=== PATIENT | female | born 1955 | race Caucasian/White ===

== ENCOUNTER 2020-03-26 16:19 | Inpatient (IN) | payer OTHER ==
--- NOTE | 2020-03-26 17:15 | PDOC ---
History of Present Illness - General Chief Complaint: Pain Stated Complaint: PAIN Time Seen by Provider: 03/26/20 17:10 - History of Present Illness Initial Comments: 65 YOF h/o hypothyroidism by gastritis presents for abdominal pain and melena of two days duration. Per patient pain is located in the epigastrum radiating outward laterally and to the back. She describes the pain as 10/10 in intensity, burning and stabbing in quality, she tried to take omeprazole but didnt experience any relief. She also endorses a bout of vomiting 2 days prior, as well as multiple bouts of tarry stool and some burning chest pain. Denies SOB, fever, chills, nausea, or diarrhea, changes in urinary habit. Past History - Medical History Allergies/Adverse Reactions: Allergies Allergy/AdvReac Type Severity Reaction Status Date / Time No Known Allergies Allergy Verified 03/26/20 16:33 Home Medications: Ambulatory Orders Levothyroxine [Synthroid -] 50 mcg PO DAILY 03/26/20 COPD: No GI Disorders: Yes (GASTRITIS) HTN: Yes Thyroid Disease: Yes (HYPO) - Reproductive History Is Patient Now?: No - Psycho-Social/Smoking History Smoking Status: No Smoking History: Never smoked Have you smoked in the past 12 months: No Number of Cigarettes Smoked Daily: 0 Information on smoking cessation initiated: No - Substance Abuse Hx (Audit-C & DAST Scrn) How often the patient has a drink containing alcohol: Never Score: In Men: 4 or > Positive; In Women: 3 or > Positive: 0 Screen Result (Pos requires Nsg. Audit-10AR): Negative In the last yr the pt used illegal drug/Rx for NonMed reason: No Score: Yes response is considered Positive: 0 Screen Result (Positive result requires Nsg. DAST-10): Negative Review of Systems - Review of Systems Constitutional: Yes: See HPI HEENTM: Yes: See HPI Respiratory: Yes: See HPI Cardiac (ROS): Yes: See HPI ABD/GI: Yes: See HPI : Yes: See HPI Musculoskeletal: Yes: See HPI Integumentary: Yes: See HPI Neurological: Yes: See HPI Endocrine: Yes: See HPI Hematologic/Lymphatic: Yes: See HPI *Physical Exam - Vital Signs Last Vital Signs Temp Pulse Resp BP Pulse Ox 98.6 F 76 18 132/83 97 03/26/20 16:29 03/26/20 16:29 03/26/20 16:29 03/26/20 16:29 03/26/20 16:29 - Physical Exam General Appearance: Yes: Nourished, Moderate Distress HEENT: positive: EOMI, JAKY, Normal ENT Inspection, Normal Voice Neck: positive: Trachea midline, Normal Thyroid Respiratory/Chest: positive: Chest Tender, Lungs Clear, Normal Breath Sounds Cardiovascular: positive: Regular Rhythm, Regular Rate, S1, S2 Gastrointestinal/Abdominal: positive: Tender, Soft, Tenderness Rectal Exam: positive: normal exam Musculoskeletal: positive: Normal Inspection Extremity: positive: Normal Capillary Refill, Normal Inspection Integumentary: positive: Normal Color, Dry, Warm ED Treatment Course - LABORATORY CBC & Chemistry Diagram: 03/27/20 05:15 03/27/20 05:15 Medical Decision Making - Medical Decision Making 65 YOF h/o hypothyroidism by gastritis presents for abdominal pain and melena of two days duration. Per patient pain is located in the epigastrum radiating outward laterally and to the back. She describes the pain as 10/10 in intensity, burning and stabbing in quality, she tried to take omeprazole but didnt experience any relief. She also endorses a bout of vomiting 2 days prior, as well as multiple bouts of tarry stool and some burning chest pain. Denies SOB, fever, chills, nausea, or diarrhea, changes in urinary habit. Vitals wnl on arrival. Physical exam reveals tenderness to palpation of epigastrum and upper two quadrants of abdomen. Rectal exam unremarkable. ddx: peptic ulcer disease, AVM, bowel perforation, mesenteric ischemia, bowel obstruction plan: CBC, CMP, lactate, lipase, type and screen, coags, CT abdomen reassess: labs at time of sign out wnl, patient signed out to night team. 03/27/20 07:54 Discharge - Discharge Information Problems reviewed: Yes Clinical Impression/Diagnosis: Acute cholecystitis due to biliary calculus Condition: Guarded - Follow up/Referral - Patient Discharge Instructions - Post Discharge Activity
[2020-03-26] MEDS ORDERED: FAMOTIDINE 20 MG/50 ML IVPB 20 MG/50 ML MG IVPB ONE ×2 (17:46→18:00)
[2020-03-26] MEDS ORDERED: PANTOPRAZOLE SODIUM 40 MG VIAL IVPUSH ONE (17:58)
[2020-03-26] MEDS ORDERED: MAG HYDROX/AL HYDROX/SIMETH 30 ML UNIT-DOSE CUP ONE (18:00)
[2020-03-26] MEDS ORDERED: LIDOCAINE VISCOUS 2% ORAL/TOP 20 ML UNIT-DOSE CUP ONE (18:00)
[2020-03-26] MEDS: LIDOCAINE VISCOUS 2% ORAL/TOP 20 ML UNIT-DOSE CUP MM ONE ×2 (18:05→18:09)
[2020-03-26] MEDS: MAG HYDROX/AL HYDROX/SIMETH -MYLANTA- ORAL SUSPENSION PO ONE ×2 (18:05→18:10)
[2020-03-26] MEDS ORDERED: PANTOPRAZOLE SODIUM 40 MG VIAL ONE (18:07)
[2020-03-26] MEDS ORDERED: morphine CARPU-JECT 2 MG/1 ML DISP.SYRIN IVPUSH ONE (18:09)
[2020-03-26] MEDS ORDERED: LACTATED RINGERS SOLUTION 1000 ML INFUS.BAG IV ONE (18:09)
[2020-03-26] MEDS ORDERED: MORPHINE SULFATE 2 MG/ML VIAL ONE (18:13)
--- NOTE | 2020-03-26 18:15 | PDOC ---
Documentation entered by Eda Rice SCRIBE, acting as scribe for Nuvia Bloom DO. Nuvia Bloom DO: This documentation has been prepared by the Krystal carrington Brenda, SCRIBE, under my direction and personally reviewed by me in its entirety. I confirm that the documentation accurately reflects all work, treatment, procedures, and medical decision making performed by me. Attending Attestation - Resident Resident Name: Napoleon Khan - ED Attending Attestation I have performed the following: I have examined & evaluated the patient, The case was reviewed & discussed with the resident, I agree w/resident's findings & plan, Exceptions are as noted - HPI HPI: 03/26/20 17:51 The patient is a 65 year old female with a significant PMH of hypothyroidism who presents to the emergency department fro evaluation of 2 days of melena and abdominal pain in the epigastric region radiating outward to her sides and to her back. Also endorses vomitting 2 days ago along with burning chest pain. The patient denies shortness of breath, headache and dizziness. Denies fever, chills and constipation. Denies dysuria, frequency, urgency and hematuria. Allergies: NKA Social history: No reported hx of tobacco use, alcohol use or illicit drug use. PCP: Lexa - Physicial Exam PE: 03/26/20 17:18 GENERAL: Awake, alert, and fully oriented, in no acute distress HEAD: No signs of trauma NECK: Normal ROM, supple, no lymphadenopathy, JVD, or masses LUNGS: Breath sounds equal, clear to auscultation bilaterally. No wheezes, and no crackles HEART: Regular rate and rhythm, normal S1 and S2, no murmurs, rubs or gallops ABDOMEN: (+) Tenderness to palpation diffusely (+) Tender to palpation on the upper abdomen,right upper/left upper quadrant to the mid epigastric region to the umbilicous. Soft. Normoactive bowel sounds. No guarding, no rebound. No masses EXTREMITIES: Normal range of motion, no edema. No clubbing or cyanosis. No cords, erythema, or tenderness NEUROLOGICAL: Cranial nerves II through XII grossly intact. Normal speech, normal gait SKIN: Warm, Dry, normal turgor, no rashes or lesions noted. - Medical Decision Making 03/26/20 18:14 a/p: 65yo female with abd pain x 3 days -first 2 days were assoc with n/v - nbnb -all 3 days with 3 episodes of diarrhea a day, now with black tarry stool -pt with upper abd pain -will send labs, lactate, ct abd/pelvis -protonix iv -ivf -will need admission 03/26/20 18:57 hgb 15 03/26/20 19:01 no elevated wbc 03/26/20 19:15 bun/cr normal trop pending 03/26/20 19:22 trop neg pt to ct still with pain, will repeat morphine dosing 03/26/20 22:47 pt with acute maury call placed to Dr. Verma microblog sent to [facility] MRCP ordered 03/26/20 23:27 resident discussed the case with Dr. Verma who will see the patient in consult 03/26/20 23:42 resident discussed the case with steven who accepts pt to service pts pain controlled at this time Heart Score/ECG Review - ECG Intrepretation Comment:: 03/26/20 19:04 sinus at 65, nl axis, nl interval, no acute st/t wave findings Discharge - Discharge Information Problems reviewed: Yes Clinical Impression/Diagnosis: Acute cholecystitis due to biliary calculus Condition: Guarded - Admission Yes - Follow up/Referral Referrals: Genaro Lindquist MD [Primary Care Provider] - - Patient Discharge Instructions - Post Discharge Activity
[2020-03-26 18:43] LABS: BASO % 0.5 % (0-2.0); EOS % 0.8 % (0-4.5); LYMPH % 22.8 % (8-40); MCH 30.7 pg (25.7-33.7); MCHC 34.1 g/dl (32.0-36.0); MEAN PLT VOLUME 8.2 fl (7.5-11.1); MONO % 7.9 % (3.8-10.2); PLATELET COUNT 245 K/MM3 (134-434); RBC 4.89 M/mm3 (3.60-5.2); RDW 13.4 % (11.6-15.6); WHITE BLOOD COUNT 7.3 K/mm3 (4.0-10.0)
[2020-03-26 19:12] LABS: ALBUMIN 3.6 g/dl (3.4-5.0); BILIRUBIN,TOTAL 0.4 mg/dL (0.2-1); BLOOD UREA NITROGEN 12.6 mg/dL (7-18); CALCIUM 8.8 mg/dL (8.5-10.1); CREATININE 1.1 mg/dL (0.55-1.3); POTASSIUM 4.3 mmol/L (3.5-5.1); TOT PROT 7.6 g/dl (6.4-8.2)
[2020-03-26] MEDS ORDERED: morphine CARPU-JECT 4 MG/1 ML DISP.SYRIN IVPUSH ONE (19:21)
[2020-03-26] MEDS ORDERED: ONDANSETRON 4 MG/2 ML VIAL IVPUSH ONE (19:21)
[2020-03-26] MEDS ORDERED: morphine SULFATE 4 MG/ML VIAL ONE (19:22)
--- NOTE | 2020-03-26 19:38 | PDOC ---
*Physical Exam - Vital Signs Last Vital Signs Temp Pulse Resp BP Pulse Ox 98.6 F 74 18 179/82 H 99 03/26/20 16:29 03/26/20 19:09 03/26/20 19:09 03/26/20 19:09 03/26/20 19:09 - Physical Exam 03/26/20 19:[address] Erin KENDALL pain ED Treatment Course - LABORATORY CBC & Chemistry Diagram: 03/26/20 17:45 03/26/20 17:45 - ADDITIONAL ORDERS Additional order review: Laboratory Results 03/26/20 03/26/20 03/26/20 17:45 17:45 17:45 Sodium Potassium Chloride Carbon Dioxide Anion Gap BUN Creatinine Est GFR (CKD-EPI)AfAm Est GFR (CKD-EPI)NonAf Random Glucose Lactic Acid 1.0 Calcium Total Bilirubin AST ALT Alkaline Phosphatase Creatine Kinase 84 Troponin I < 0.02 Total Protein Albumin Lipase Blood Type A POSITIVE Antibody Screen Negative 03/26/20 17:45 Sodium 137 Potassium 4.3 Chloride 102 Carbon Dioxide 30 Anion Gap 6 L BUN 12.6 Creatinine 1.1 Est GFR (CKD-EPI)AfAm 60.59 Est GFR (CKD-EPI)NonAf 52.28 Random Glucose 98 Lactic Acid Calcium 8.8 Total Bilirubin 0.4 AST 16 ALT 23 Alkaline Phosphatase 112 Creatine Kinase Troponin I Total Protein 7.6 Albumin 3.6 Lipase 138 Blood Type Antibody Screen 03/26/20 17:45 RBC 4.89 MCV 90.0 MCHC 34.1 RDW 13.4 MPV 8.2 Neutrophils % 68.0 Lymphocytes % 22.8 D Monocytes % 7.9 Eosinophils % 0.8 Basophils % 0.5 - Medications Given in the ED: ED Medications Discontinued Medications Generic Name Dose Route Start Last Admin Trade Name Freq PRN Reason Stop Dose Admin Al Hydroxide/Mg Hydroxide 30 ml 03/26/20 17:46 03/26/20 18:10 Mylanta Suspension - PO 03/26/20 17:47 Not Given ONCE ONE Famotidine/Sodium Chloride 20 mg in 50 mls @ 100 mls/hr 03/26/20 17:46 03/26/20 18:10 Pepcid 20 Mg Premixed Ivpb - IVPB 03/26/20 18:15 Not Given ONCE ONE Lactated Ringer's 1,000 ml 03/26/20 18:09 03/26/20 18:09 Lactated Ringers Solution IV 03/26/20 18:10 1,000 ml ONCE ONE Administration Lidocaine HCl 20 ml 03/26/20 17:46 03/26/20 18:09 Xylocaine 2% Viscous Oral - MM 03/26/20 17:47 Not Given ONCE ONE Morphine Sulfate 2 mg 03/26/20 18:09 03/26/20 18:14 Morphine Injection - IVPUSH 03/26/20 18:10 2 mg ONCE ONE Administration Morphine Sulfate 4 mg 03/26/20 19:21 03/26/20 19:26 Morphine Injection - IVPUSH 03/26/20 19:22 4 mg ONCE ONE Administration Ondansetron HCl 4 mg 03/26/20 19:21 03/26/20 19:26 Zofran Injection IVPUSH 03/26/20 19:22 4 mg ONCE ONE Administration Pantoprazole Sodium 40 mg 03/26/20 17:58 03/26/20 18:05 Protonix Iv IVPUSH 03/26/20 17:59 40 mg ONCE ONE Administration Discharge - Discharge Information Problems reviewed: Yes Clinical Impression/Diagnosis: Acute cholecystitis due to biliary calculus Condition: Guarded - Admission Yes - Follow up/Referral Referrals: Genaro Lindquist MD [Primary Care Provider] - - Patient Discharge Instructions - Post Discharge Activity
[2020-03-26] MEDS ORDERED: PIPERACILLIN/TAZOB 3.375 GM 3.375 GM in DEXTROSE 5%-WATER - 50 ML IVPB ONE (21:40)
[2020-03-27] MEDS ORDERED: HYDROmorphone HCl 2 MG/ML VIAL IVPUSH PRN (00:01)
[2020-03-27] MEDS ORDERED: LACTATED RINGERS SOLUTION 1,000 ML IV SCH (00:15)
--- NOTE | 2020-03-27 00:25 | HP ---
CHIEF COMPLAINT: abdominal pain and vomiting PCP: Hao HISTORY OF PRESENT ILLNESS: 65 YO lady with Mhx of hypothyroidism, and gastritis who presented to ED complaining from 6 days hx of RUQ pain associated with nausea and bilious vomiting, her symptoms started suddenly after eating fatty meal, the patient initially thought it was gastritis episode, and tried nexium without relieve, her symptoms continued to wax and wane over the past day. Pt reported that she noticed loose BM with 3 episodes of dark stool, no change in appetite and reported that food relieved the pain slightly, but she was not able to eat much due to the vomiting. Her pain worsen today and pt came to ED. ER course was notable for: (1) CT abdomen showed calculous cholecystitis, common bile duct dilated to 0.7cm, 4x3 cm diverticulum in 2nd part of duodenum, hepatic steatosis, lt sided diaphragmatic hernia, hiatal hernia (2)US abdomen (3)surgical consult obtained Recent Travel: no PAST MEDICAL HISTORY: hypothyroidism, and gastritis PAST SURGICAL HISTORY: hysterectomy, skin fibroma removal Social History: Smoking: denies Alcohol: denies Drugs: denies Allergies No Known Allergies Allergy (Verified 03/26/20 16:33) HOME MEDICATIONS: Home Medications Medication Instructions Recorded Levothyroxine [Synthroid -] 50 mcg PO DAILY 03/26/20 REVIEW OF SYSTEMS CONSTITUTIONAL: fever, chills HEENT: system reviewed, appears within normal limits CARDIOVASCULAR: system reviewed, appears within normal limits RESPIRATORY: system reviewed, appears within normal limits GASTROINTESTINAL: see HPI GENITOURINARY: system reviewed, appears within normal limits MUSCULOSKELETAL: system reviewed, appears within normal limits SKIN: system reviewed, appears within normal limits HEMATOLOGIC/IMMUNOLOGIC: system reviewed, appears within normal limits ENDOCRINE: system reviewed, appears within normal limits NEUROLOGIC: system reviewed, appears within normal limits PSYCHIATRIC: system reviewed, appears within normal limits PHYSICAL EXAMINATION Vital Signs - 24 hr 03/26/20 03/26/20 03/26/20 16:29 19:09 22:50 Temperature 98.6 F Pulse Rate 76 Pulse Rate [ 74 78 Right Radial] Respiratory 18 18 18 Rate Blood Pressure 132/83 Blood Pressure 179/82 H 133/54 L [Left Arm] O2 Sat by Pulse 97 99 98 Oximetry (%) GENERAL: Awake, alert, and fully oriented, in no acute distress. HEAD: Normal with no signs of trauma. EYES: Pupils equal, round and reactive to light, extraocular movements intact, sclera anicteric, conjunctiva clear. No lid lag. EARS, NOSE, THROAT: Ears normal, nares patent, oropharynx clear without exudates. Moist mucous membranes. NECK: Normal range of motion, supple without lymphadenopathy, JVD, or masses. LUNGS: Breath sounds equal, clear to auscultation bilaterally. No wheezes, and no crackles. No accessory muscle use. HEART: Regular rate and rhythm, normal S1 and S2 without murmur, rub or gallop. ABDOMEN: Soft, RUQ tenderness, Mast sign +, not distended, normoactive bowel sounds. No hepatomegaly or splenomegaly. MUSCULOSKELETAL: Normal range of motion at all joints. No bony deformities or tenderness. No CVA tenderness. UPPER EXTREMITIES: 2+ pulses, warm, well-perfused. No cyanosis. No clubbing. No peripheral edema. LOWER EXTREMITIES: 2+ pulses, warm, well-perfused. No calf tenderness. No peripheral edema. NEUROLOGICAL: Cranial nerves II-XII intact. Normal speech. Normal gait. PSYCHIATRIC: Cooperative. Good eye contact. Appropriate mood and affect. SKIN: Warm, dry, normal turgor, no rashes or lesions noted, normal capillary refill. Laboratory Results - last 24 hr 03/26/20 03/26/20 03/26/20 17:45 17:45 17:45 WBC 7.3 RBC 4.89 Hgb 15.0 Hct 44.0 MCV 90.0 MCH 30.7 MCHC 34.1 RDW 13.4 Plt Count 245 MPV 8.2 Absolute Neuts (auto) 5.0 Neutrophils % 68.0 Lymphocytes % 22.8 D Monocytes % 7.9 Eosinophils % 0.8 Basophils % 0.5 Nucleated RBC % 0 Sodium 137 Potassium 4.3 Chloride 102 Carbon Dioxide 30 Anion Gap 6 L BUN 12.6 Creatinine 1.1 Est GFR (CKD-EPI)AfAm 60.59 Est GFR (CKD-EPI)NonAf 52.28 Random Glucose 98 Lactic Acid 1.0 Calcium 8.8 Total Bilirubin 0.4 AST 16 ALT 23 Alkaline Phosphatase 112 Creatine Kinase Troponin I Total Protein 7.6 Albumin 3.6 Lipase 138 Blood Type Antibody Screen 03/26/20 03/26/20 17:45 17:45 WBC RBC Hgb Hct MCV MCH MCHC RDW Plt Count MPV Absolute Neuts (auto) Neutrophils % Lymphocytes % Monocytes % Eosinophils % Basophils % Nucleated RBC % Sodium Potassium Chloride Carbon Dioxide Anion Gap BUN Creatinine Est GFR (CKD-EPI)AfAm Est GFR (CKD-EPI)NonAf Random Glucose Lactic Acid Calcium Total Bilirubin AST ALT Alkaline Phosphatase Creatine Kinase 84 Troponin I < 0.02 Total Protein Albumin Lipase Blood Type A POSITIVE Antibody Screen Negative Home Medications Medication Instructions Recorded Levothyroxine [Synthroid -] 50 mcg PO DAILY 03/26/20 ASSESSMENT/PLAN: 65 YO lady with Mhx of hypothyroidism, NAFLD and gastritis who p resented to ED complaining from 6 days hx of RUQ pain associated with nausea and bilious vomiting # Acute calculous cholecystitis reporting subjective fever, chills no fever, no leukocytosis CT abdomen showed calculous cholecystitis, common bile duct dilated to 0.7cm, 4x3 cm diverticulum in 2nd part of duodenum, hepatic steatosis, lt sided diaphragmatic hernia, hiatal hernia NPO, IV hydration, pain medications as indicated zosyn RCRI=0 (low risk patient), ASA2 obtain EKG May need MRCP later Surgical consult Hypothyroidism Gastritis NAFLD DVT prophylaxis with SCD Family Medical History Family History: Unremarkable Visit type - Medication Review Med list reviewed for High Risk Meds patients 65 and older: Yes (yes) - Emergency Visit Emergency Visit: Yes Care time: The patient presented to the Emergency Department on the above date and was hospitalized for further evaluation of their emergent condition. - New Patient This patient is new to me today: Yes Date on this admission: 03/27/20 - Critical Care Critical Care patient: No
[2020-03-27 01:43] LABS: PH,URINE > 9.0 (5.0-8.0); URINE APPEARANCE CLEAR; URINE BILIRUBIN NEGATIVE (NEGATIVE); URINE COLOR YELLOW; URINE GLUCOSE (UA) NEGATIVE (NEGATIVE); URINE KETONE NEGATIVE (NEGATIVE)
[2020-03-27 01:44] LABS: URINE LEUK ESTERASE NEGATIVE (NEGATIVE); URINE NITRITE NEGATIVE (NEGATIVE); URINE PROTEIN NEGATIVE (NEGATIVE); URINE UROBILINOGEN 0.2 mg/dL (0.2-1.0)
[2020-03-27] MEDS ORDERED: PIPERACILLIN/TAZOB 3.375 GM 3.375 GM in DEXTROSE 5%-WATER - 50 ML IVPB SCH ×2 (03:00→21:00)
[2020-03-27] MEDS ORDERED: PIPERACILLIN/TAZOB 3.375 GM 3.375 GM/50 ML BAG IVPB ONE (03:02)
[2020-03-27 06:05] LABS: BASO % 0.5 % (0-2.0); EOS % 0.8 % (0-4.5); HEMATOCRIT 42.5 % (32.4-45.2); HEMOGLOBIN 14.3 GM/dL (10.7-15.3); LYMPH % 22.1 % (8-40); MCH 30.1 pg (25.7-33.7); MCHC 33.8 g/dl (32.0-36.0); MEAN CELL VOLUME 89.3 fl (80-96); MEAN PLT VOLUME 7.6 fl (7.5-11.1); MONO % 9.4 % (3.8-10.2); NEUT % 67.2 % (42.8-82.8); PLATELET COUNT 234 K/MM3 (134-434); RBC 4.76 M/mm3 (3.60-5.2); RDW 13.5 % (11.6-15.6); WHITE BLOOD COUNT 5.8 K/mm3 (4.0-10.0)
[2020-03-27 06:20] LABS: INR 1.08 (0.83-1.09); PROTHROMBIN TIME (PATIENT) 12.8 SEC (9.7-13.0)
[2020-03-27 06:36] LABS: ALBUMIN 3.6 g/dl (3.4-5.0); BILIRUBIN,TOTAL 0.9 mg/dL (0.2-1); BLOOD UREA NITROGEN 9.1 mg/dL (7-18); CALCIUM 8.6 mg/dL (8.5-10.1); CREATININE 1.1 mg/dL (0.55-1.3); MAGNESIUM 2.6 mg/dL (1.8-2.4); PHOSPHOROUS 4.8 mg/dL (2.5-4.9); POTASSIUM 4.2 mmol/L (3.5-5.1); TOT PROT 7.4 g/dl (6.4-8.2)
--- NOTE | 2020-03-27 09:19 | EKG ---
Test Reason : Blood Pressure : / mmHG Vent. Rate : 066 BPM Atrial Rate : 066 BPM P-R Int : 144 ms QRS Dur : 082 ms QT Int : 428 ms P-R-T Axes : 051 039 020 degrees QTc Int : 448 ms NORMAL SINUS RHYTHM NORMAL ECG WHEN COMPARED WITH ECG OF 18-APR-2013 13:15, NO SIGNIFICANT CHANGE WAS FOUND Confirmed by JOE CHANEY MD ([id number]) on 03/27/2020 9:18:53 AM Referred By: Confirmed By:JOE CHANEY MD
[2020-03-27] MEDS ORDERED: CEFTRIAXONE 1 GM in DEXTROSE 5%-WATER - 50 ML IVPB SCH (10:00)
[2020-03-27] MEDS ORDERED: CEFTRIAXONE 1 GM/50 ML BAG ONE (10:24)
--- NOTE | 2020-03-27 11:20 | PN ---
Teaching Attending Note Name of Resident: Segundo Lassiter ATTENDING PHYSICIAN STATEMENT I saw and evaluated the patient. I reviewed the resident's note and discussed the case with the resident. I agree with the resident's findings and plan as documented. SUBJECTIVE: Seen and examined at bedside. No acute distress, mild abdominal tenderness. LFTs noted to be increasing. Discussed with surgery: Given the large size of the stone (2.7 cm) they believe this represents extrinsic compression of the common bile duct and not current passage of a stone. Would prefer to defer additional imaging and take straight to the operating room. OBJECTIVE Last Vital Signs Temp Pulse Resp BP Pulse Ox 97.6 F 64 18 146/57 L 97 03/27/20 05:54 03/27/20 05:54 03/27/20 05:54 03/27/20 05:54 03/27/20 05:54 PE: Per resident note Labs/Imaging: reviewed ASSESSMENT/PLAN 65-year-old female with a history of hypothyroidism, NAFLD, gastritis who presents with acute cholecystitis #Acute calculus cholecystitis Surgery on board: 4 OR today Ceftriaxone, Flagyl prior to surgery N.p.o. Fluids #Hypothyroidism Continue home levothyroxine #Gastritis Pantoprazole
--- NOTE | 2020-03-27 13:30 | CONSULT ---
- Consultation REQUESTING PROVIDER: CONSULT REQUEST: We have been asked to surgically evaluate this patient for acute cholecystitis Hospitalist:Remberto Gonzalez MD HISTORY OF PRESENT ILLNESS: 65yo F was consulted to surgery for evaluation of acute cholecystitis. Pt states that she started developing significant RUQ pain associated with nausea and vomiting. Pt states she has history of epigastric pain after eating, but always associated it with gastritis. Pt denies fever, chills. PMHx: hypothyroidism PSHx: hysterectomy Home Medications Medication Instructions Recorded Levothyroxine [Synthroid -] 50 mcg PO DAILY 03/26/20 Allergies Allergy/AdvReac Type Severity Reaction Status Date / Time No Known Allergies Allergy Verified 03/26/20 16:33 REVIEW OF SYSTEMS: CONSTITUTIONAL: Absent: fever, chills, diaphoresis, generalized weakness, malaise, loss of appetite, weight change CARDIOVASCULAR: Absent: chest pain, syncope, palpitations, irregular heart rate, lightheadedness, peripheral edema RESPIRATORY: Absent: cough, shortness of breath, dyspnea with exertion, wheezing, stridor, hemoptysis GASTROINTESTINAL: Absent: abdominal pain, abdominal distension, nausea, vomiting, diarrhea, constipation, melena, hematochezia GENITOURINARY: Absent: dysuria, frequency, urgency, hesitancy, hematuria, flank pain, genital pain PHYSICAL EXAM: GENERAL: Awake, alert, and fully oriented, in no acute distress. HEAD: Normal with no signs of trauma. EYES: PERRL, sclera anicteric, conjunctiva clear. NECK: Normal ROM, supple without lymphadenopathy, JVD, or masses. LUNGS: breathing comfortably, No accessory muscle use. ABDOMEN: Soft, moderate RUQ tenderness, not distended, no guarding, no rebound, no masses. No organomegaly. MUSCULOSKELETAL: Normal ROM at all joints. No bony deformities or tenderness. No CVA tenderness. UPPER EXTREMITIES: warm, well-perfused. No cyanosis. Cap refill <2 seconds. No peripheral edema. LOWER EXTREMITIES: warm, well-perfused. No calf tenderness. No peripheral edema. NEUROLOGICAL: Normal speech, gait not observed. PSYCH: Cooperative. Good eye contact. Appropriate mood and affect. SKIN: Warm, dry, normal turgor, no rashes or lesions noted. Vital Signs Temperature 98 F 03/27/20 09:00 Pulse Rate 63 03/27/20 09:00 Respiratory Rate 18 03/27/20 09:00 Blood Pressure 153/78 03/27/20 09:00 O2 Sat by Pulse Oximetry (%) 95 03/27/20 09:00 Lab Results WBC 5.8 K/mm3 (4.0-10.0) 03/27/20 05:15 RBC 4.76 M/mm3 (3.60-5.2) 03/27/20 05:15 Hgb 14.3 GM/dL (10.7-15.3) 03/27/20 05:15 Hct 42.5 % (32.4-45.2) 03/27/20 05:15 MCV 89.3 fl (80-96) 03/27/20 05:15 MCHC 33.8 g/dl (32.0-36.0) 03/27/20 05:15 RDW 13.5 % (11.6-15.6) 03/27/20 05:15 Plt Count 234 K/MM3 (134-434) 03/27/20 05:15 INR 1.08 (0.83-1.09) 03/27/20 05:15 Sodium 138 mmol/L (136-145) 03/27/20 05:15 Potassium 4.2 mmol/L (3.5-5.1) 03/27/20 05:15 Chloride 104 mmol/L (98-107) 03/27/20 05:15 Carbon Dioxide 27 mmol/L (21-32) 03/27/20 05:15 Anion Gap 7 MMOL/L (8-16) L 03/27/20 05:15 BUN 9.1 mg/dL (7-18) 03/27/20 05:15 Creatinine 1.1 mg/dL (0.55-1.3) 03/27/20 05:15 Random Glucose 114 mg/dL (74-106) H 03/27/20 05:15 Calcium 8.6 mg/dL (8.5-10.1) 03/27/20 05:15 Blood Type A POSITIVE 03/26/20 17:45 Antibody Screen Negative 03/26/20 17:45 CT abdomen showed calculous cholecystitis, common bile duct dilated to 0.7cm, 4x3 cm diverticulum in 2nd part of duodenum, hepatic steatosis, lt sided diaphragmatic hernia, hiatal hernia Problem List - Problems (1) Acute cholecystitis due to biliary calculus Assessment/Plan: Plan -will plan for Lap cholecystectomy later today. -keep NPO, IVF, abx -elevated LFTs most likely due to compression of CBD from large stone -spoke with pt at length about surgery and pt agrees. Pt seen and discussed with Dr. Verma who agrees with plan Code(s): K80.00 - CALCULUS OF GALLBLADDER W ACUTE CHOLECYST W/O OBSTRUCTION
--- NOTE | 2020-03-27 13:40 | PN ---
Physical Exam: SUBJECTIVE: Patient seen and examined at bedside. She endorses some right upper quadrant abdominal pain, ongoing for past week. OBJECTIVE: Vital Signs Period Temp Pulse Resp BP Sys/Tee Pulse Ox Last 24 Hr 97.6 F-98.6 F 63-78 18-18 132-179/54-83 95-99 GENERAL: The patient is awake, alert, and fully oriented, in no acute distress. HEAD: Normocephalic, atraumatic. EYES: PERRL, extraocular movements intact, sclera anicteric, conjunctiva clear. ENT: Oropharynx clear, without erythema or exudates. Moist mucous membranes. NECK: Trachea midline, full range of motion. Supple without lymphadenopathy. LUNGS: Breath sounds equal, clear to auscultation bilaterally. No wheezes, no crackles. No accessory muscle use. HEART: Regular rate and rhythm. S1, S2 without murmur, rub or gallop. ABDOMEN: Soft. Tender to deep palpation X4 quadrants, worst at right upper quadrant. Negative Mast's sign. Negative rebound tenderness, no guarding. Normoactive bowel sounds x4 quadrants. No hepatosplenomegaly, no masses appreciated. EXTREMITIES: 2+ radial, dorsalis pedis pulses bilaterally. Warm, well-perfused. No lower extremity edema bilaterally. NEUROLOGICAL: Cranial nerves II through XII grossly intact. Normal speech. No gross focal deficits. PSYCH: Normal mood, normal affect upon my encounter. SKIN: Warm, dry. Laboratory Results - last 24 hr 03/26/20 03/26/20 03/26/20 17:45 17:45 17:45 WBC 7.3 RBC 4.89 Hgb 15.0 Hct 44.0 MCV 90.0 MCH 30.7 MCHC 34.1 RDW 13.4 Plt Count 245 MPV 8.2 Absolute Neuts (auto) 5.0 Neutrophils % 68.0 Lymphocytes % 22.8 D Monocytes % 7.9 Eosinophils % 0.8 Basophils % 0.5 Nucleated RBC % 0 PT with INR INR Sodium 137 Potassium 4.3 Chloride 102 Carbon Dioxide 30 Anion Gap 6 L BUN 12.6 Creatinine 1.1 Est GFR (CKD-EPI)AfAm 60.59 Est GFR (CKD-EPI)NonAf 52.28 Random Glucose 98 Lactic Acid 1.0 Calcium 8.8 Phosphorus Magnesium Total Bilirubin 0.4 AST 16 ALT 23 Alkaline Phosphatase 112 Creatine Kinase Troponin I Total Protein 7.6 Albumin 3.6 Total Amylase Lipase 138 TSH Urine Color Urine Appearance Urine pH Ur Specific [place] Urine Protein Urine Glucose (UA) Urine Ketones Urine Blood Urine Nitrite Urine Bilirubin Urine Urobilinogen Ur Leukocyte Esterase Blood Type Antibody Screen 03/26/20 03/26/20 03/27/20 17:45 17:45 00:20 WBC RBC Hgb Hct MCV MCH MCHC RDW Plt Count MPV Absolute Neuts (auto) Neutrophils % Lymphocytes % Monocytes % Eosinophils % Basophils % Nucleated RBC % PT with INR INR Sodium Potassium Chloride Carbon Dioxide Anion Gap BUN Creatinine Est GFR (CKD-EPI)AfAm Est GFR (CKD-EPI)NonAf Random Glucose Lactic Acid Calcium Phosphorus Magnesium Total Bilirubin AST ALT Alkaline Phosphatase Creatine Kinase 84 Troponin I < 0.02 Total Protein Albumin Total Amylase Lipase TSH Urine Color Yellow Urine Appearance Clear Urine pH > 9.0 H Ur Specific [place] 1.047 H Urine Protein Negative Urine Glucose (UA) Negative Urine Ketones Negative Urine Blood Negative Urine Nitrite Negative Urine Bilirubin Negative Urine Urobilinogen 0.2 Ur Leukocyte Esterase Negative Blood Type A POSITIVE Antibody Screen Negative 03/27/20 03/27/20 03/27/20 01:00 05:15 05:15 WBC 5.8 RBC 4.76 Hgb 14.3 Hct 42.5 MCV 89.3 MCH 30.1 MCHC 33.8 RDW 13.5 Plt Count 234 MPV 7.6 Absolute Neuts (auto) 3.9 Neutrophils % 67.2 Lymphocytes % 22.1 Monocytes % 9.4 Eosinophils % 0.8 Basophils % 0.5 Nucleated RBC % 0 PT with INR 12.80 INR 1.08 Sodium Potassium Chloride Carbon Dioxide Anion Gap BUN Creatinine Est GFR (CKD-EPI)AfAm Est GFR (CKD-EPI)NonAf Random Glucose Lactic Acid 3.2 H* Calcium Phosphorus Magnesium Total Bilirubin AST ALT Alkaline Phosphatase Creatine Kinase Troponin I Total Protein Albumin Total Amylase Lipase TSH Urine Color Urine Appearance Urine pH Ur Specific [place] Urine Protein Urine Glucose (UA) Urine Ketones Urine Blood Urine Nitrite Urine Bilirubin Urine Urobilinogen Ur Leukocyte Esterase Blood Type Antibody Screen 03/27/20 03/27/20 05:15 05:49 WBC RBC Hgb Hct MCV MCH MCHC RDW Plt Count MPV Absolute Neuts (auto) Neutrophils % Lymphocytes % Monocytes % Eosinophils % Basophils % Nucleated RBC % PT with INR INR Sodium 138 Potassium 4.2 Chloride 104 Carbon Dioxide 27 Anion Gap 7 L BUN 9.1 Creatinine 1.1 Est GFR (CKD-EPI)AfAm 60.59 Est GFR (CKD-EPI)NonAf 52.28 Random Glucose 114 H Lactic Acid 1.2 Calcium 8.6 Phosphorus 4.8 Magnesium 2.6 H Total Bilirubin 0.9 AST 284 H ALT 267 H Alkaline Phosphatase 250 H Creatine Kinase Troponin I Total Protein 7.4 Albumin 3.6 Total Amylase 26 Lipase 129 TSH 5.66 H Urine Color Urine Appearance Urine pH Ur Specific [place] Urine Protein Urine Glucose (UA) Urine Ketones Urine Blood Urine Nitrite Urine Bilirubin Urine Urobilinogen Ur Leukocyte Esterase Blood Type Antibody Screen Active Medications Generic Name Dose Route Start Last Admin Trade Name Freq PRN Reason Stop Dose Admin Hydromorphone HCl 2 mg 03/27/20 00:01 Dilaudid Vial - IVPUSH Q8H PRN PAIN LEVEL 6-10 Lactated Ringer's 1,000 mls @ 83 mls/hr 03/27/20 00:15 03/27/20 00:48 Lactated Ringers Solution IV 83 mls/hr ASDIR BABITA Administration Piperacillin Sod/Tazobactam 50 mls @ 100 mls/hr 03/27/20 03:00 Sod 3.375 gm/ Dextrose IVPB Q6H-IV BABITA Protocol Ceftriaxone Sodium 1 gm/ 50 mls @ 100 mls/hr 03/27/20 10:00 03/27/20 11:25 Dextrose IVPB 100 mls/hr DAILY BABITA Administration Metronidazole 500 mg in 100 mls @ 100 mls/hr 03/27/20 10:00 03/27/20 10:28 Flagyl 500mg Premixed Ivpb - IVPB 100 mls/hr Q8H-IV BABITA Administration Levothyroxine Sodium 50 mcg 03/28/20 07:00 Synthroid - PO ACBK BABITA Ondansetron HCl 4 mg 03/28/20 05:00 Zofran Injection IVPUSH Q6H PRN NAUSEA AND/OR VOMITING Pantoprazole Sodium 40 mg 03/28/20 10:00 Protonix Iv IVPUSH DAILY BABITA ASSESSMENT/PLAN: Patient is an 85 year old female with history of hypothyroidism presents with complaint of abdominal pain. Acute calculous cholecystitis -CT abdomen, pelvis reveals gallbladder overdistended with diffuse wall thickening, pericholecystic stranding. 2.7cm calculus at gallbladder neck. -Right upper quadrant ultrasound reveals common bile duct at 0.7cm, without gross calculus noted. -NPO -IV Lactated Ringer's at 83mL/ hour -Ceftriaxone, Flagyl -General surgery consult (Dr. Verma) appreciated. Patient will undergo laparoscopic cholecystectomy today. History of hypothyroidism -Continue home Synthroid FEN -IV Lactated Ringer's at 83mL/ hour -Follow BMP -NPO pending surgical procedure today. Prophylaxis -SCDs bilateral lower extremities. Holding chemical anticoagulation in anticipation surgical procedure today. Disposition -Continue care in medical- surgical floor. Visit type - Emergency Visit Emergency Visit: Yes ED Registration Date: 03/27/20 Care time: The patient presented to the Emergency Department on the above date and was hospitalized for further evaluation of their emergent condition. - New Patient This patient is new to me today: Yes Date on this admission: 03/27/20 - Critical Care Critical Care patient: No - Discharge Referral Referred to [facility] Med P.C.: No - Medication Review Med list reviewed for High Risk Meds patients 65 and older: Yes ATTENDING PHYSICIAN STATEMENT I saw and evaluated the patient. I reviewed the resident's note and discussed the case with the resident. I agree with the resident's findings and plan as documented. SUBJECTIVE: OBJECTIVE: ASSESSMENT AND PLAN:
[2020-03-27] MEDS ORDERED: SUCCINYLCHOLINE CHLORIDE 200 MG/10 ML SYRINGE ONE (14:45)
[2020-03-27] MEDS ORDERED: PROPOFOL 20 ML ONE ×4 (14:45)
[2020-03-27] MEDS ORDERED: ROCURONIUM BROMIDE 50 MG/5 ML SYRINGE ONE (14:45)
[2020-03-27] MEDS ORDERED: MIDAZOLAM HCL 2 MG/2 ML SINGLE DOSE VIAL ONE (14:46)
[2020-03-27] MEDS ORDERED: BUPIVACAINE HCL/PF 0.5% (5 MG/ML) 30 ML VIAL IJ ONE ×2 (16:11)
[2020-03-27] MEDS ORDERED: NEOSTIGMINE METHYLSULFATE 0.5 MG/ML - 10 ML MDV ONE (16:58)
[2020-03-27] MEDS ORDERED: NALOXONE HCL 0.4 MG/ML VIAL ONE (17:19)
[2020-03-27] MEDS ORDERED: ACETAMINOPHEN 1000 MG/100 ML VIAL (NON FORMULARY) IVPB PRN ×2 (17:25→17:31)
[2020-03-27] MEDS ORDERED: MORPHINE SULFATE 2 MG/ML VIAL IVPUSH PRN (17:31)
[2020-03-27] MEDS ORDERED: ACETAMINOPHEN INJECTION 100 ML IVPB ONE (17:50)
[2020-03-27] MEDS: LACTATED RINGERS SOLUTION 1,000 ML IV SCH ×2 (19:04→21:40)
[2020-03-27 21:34] VITALS: BMI 26.1
[2020-03-27] MEDS: PIPERACILLIN/TAZOB 3.375 GM 3.375 GM in DEXTROSE 5%-WATER - 50 ML IVPB SCH ×2 (23:34→23:35)
[2020-03-28] MEDS: oxyCODONE HCL 5 MG TABLET PO PRN ×3 (00:29→15:54)
[2020-03-28] MEDS ORDERED: ONDANSETRON 4 MG/2 ML VIAL IVPUSH PRN ×2 (05:00)
[2020-03-28] MEDS: LEVOTHYROXINE NA 50 MCG TABLET (FP) PO SCH (05:59)
[2020-03-28] MEDS ORDERED: LEVOTHYROXINE NA 50 MCG TABLET (FP) PO SCH (07:00)
[2020-03-28 09:23] LABS: HEMATOCRIT 37.3 % (32.4-45.2); HEMOGLOBIN 12.7 GM/dL (10.7-15.3); MCHC 34.1 g/dl (32.0-36.0); MEAN CELL VOLUME 90.8 fl (80-96); MEAN PLT VOLUME 8.4 fl (7.5-11.1); PLATELET COUNT 216 K/MM3 (134-434); RBC 4.11 M/mm3 (3.60-5.2); RDW 13.3 % (11.6-15.6); WHITE BLOOD COUNT 7.8 K/mm3 (4.0-10.0)
[2020-03-28] MEDS ORDERED: PANTOPRAZOLE SODIUM 40 MG VIAL IVPUSH SCH (10:00)
[2020-03-28 10:02] LABS: CALCIUM 7.9 mg/dL (8.5-10.1); POTASSIUM 3.9 mmol/L (3.5-5.1)
[2020-03-28 10:08] LABS: BILIRUBIN,TOTAL 0.8 mg/dL (0.2-1); BLOOD UREA NITROGEN 6.8 mg/dL (7-18); CREATININE 0.8 mg/dL (0.55-1.3); TOT PROT 6.2 g/dl (6.4-8.2)
[2020-03-28] MEDS ORDERED: cefTRIAXone SODIUM 1 GM VIAL ONE (10:40)
[2020-03-28] MEDS ORDERED: DEXTROSE 5%-WATER - 50 ML IVPB ONE (10:40)
[2020-03-28] MEDS: CEFTRIAXONE 1 GM in DEXTROSE 5%-WATER - 50 ML IVPB SCH (10:58)
[2020-03-28] MEDS: PANTOPRAZOLE SODIUM 40 MG VIAL IVPUSH SCH (10:58)
[2020-03-28] MEDS: LACTATED RINGERS SOLUTION 1,000 ML IV SCH (10:59)
--- NOTE | 2020-03-28 11:11 | PN ---
Progress Note (short form) - Note Progress Note: S: POD1. Improved today with residual pain around site. No events overnight. Vital Signs Temperature 98.2 F 03/28/20 10:55 Pulse Rate 59 L 03/28/20 10:55 Respiratory Rate 03/28/20 10:55 Blood Pressure 120/57 L 03/28/20 10:55 O2 Sat by Pulse Oximetry (%) 96 03/28/20 10:55 PE: Gen: NAD, awake, alert, oriented x3 sitting up in bed HEENT: NC/AT, GILLES, MMM LUNG: CTA b/l without wheezes or rhonchi CARD: RRR no murmurs ABD: Soft, minimal tenderness near surgical site, GALLITO drain with ~10-15 cc serosanguinous fluid with milking, laparoscopic sites C/D/I, nondistendend, hypoactive BS, no guarding no rebound. EXT: No edema, 2+ pulses b/l. CBC, BMP 03/28/20 08:05 03/28/20 08:05 Hepatic Panel Total Bilirubin 0.8 mg/dL (0.2-1) 03/28/20 08:05 AST 124 U/L (15-37) H 03/28/20 08:05 ALT 223 U/L (13-61) H 03/28/20 08:05 Alkaline Phosphatase 175 U/L (45-117) H 03/28/20 08:05 Albumin 3.0 g/dl (3.4-5.0) L 03/28/20 08:05 Active Medications Acetaminophen (Ofirmev Injection -) 1,000 mg IVPB Q6H PRN PRN Reason: PAIN LEVEL 1 - 3 Stop: 03/28/20 17:25 Last Admin: 03/27/20 18:00 Dose: 1,000 mg Documented by: Fentanyl (Sublimaze Injection -) 50 mcg IVPUSH [id number] PRN PRN Reason: PAIN-PACU ORDER X 4 DOSES ONLY Last Admin: 03/27/20 17:50 Dose: 50 mcg Documented by: Metronidazole (Flagyl 500mg Premixed Ivpb -) 500 mg in 100 mls @ 100 mls/hr IVPB Q8H-IV BABITA Last Admin: 03/28/20 10:58 Dose: 100 mls/hr Documented by: Ceftriaxone Sodium 1 gm/ (Dextrose) 50 mls @ 100 mls/hr IVPB DAILY [facility] Last Admin: 03/28/20 10:58 Dose: 100 mls/hr Documented by: Lactated Ringer's (Lactated Ringers Solution) 1,000 mls @ 83 mls/hr IV ASDIR [facility] Last Admin: 03/28/20 10:59 Dose: 83 mls/hr Documented by: Levothyroxine Sodium (Synthroid -) 50 mcg PO ACBK [facility] Last Admin: 03/28/20 05:59 Dose: 50 mcg Documented by: Morphine Sulfate (Morphine Sulfate) 2 mg IVPUSH Q4H PRN PRN Reason: PAIN LEVEL 7 - 10 Ondansetron HCl (Zofran Injection) 4 mg IVPUSH Q6H PRN PRN Reason: NAUSEA AND/OR VOMITING Oxycodone HCl (Roxicodone -) 5 mg PO Q6H PRN PRN Reason: PAIN LEVEL 1-5 Oxycodone HCl (Roxicodone -) 10 mg PO Q6H PRN PRN Reason: PAIN LEVEL 6-10 Last Admin: 03/28/20 06:30 Dose: 10 mg Documented by: Pantoprazole Sodium (Protonix Iv) 40 mg IVPUSH DAILY [facility] Last Admin: 03/28/20 10:58 Dose: 40 mg Documented by: Assessment and Plan: Acute calculus cholecystitis History of Hypothyroidism --POD 1 lap cholecystectomy --Drain maintenance --Surgery on board --Advance diet as tolerated --Continue PRN pain control --Monitor for flatus/BM --Continue Rocephin and Flagyl --Discontinue IVF considering tolerance to PO regimen --Patient to be out of bed to aid in recovery --Incentive spirometer as directed --Continue home Synthroid Dispo: continue monitoring Agusto Acosta, DO - IM
--- NOTE | 2020-03-28 13:06 | PN ---
Progress Note (short form) - Note Progress Note: Attending Surgeon POD#1 s/p lap maury c/o incisional pain; voiding and tolerating clear liquids VSS AF abdo-soft; tender at epigastric port site; GALLITO serous; port sites c/d/i o/w negative t bili-nl; LFT's noted IMP: doing well PLAN Advance diet as tolerated; continue JPandas per orders; OOB. Johann Verma MD FACS
--- NOTE | 2020-03-28 13:14 | OP ---
Operative Note - Note: Operative Date: 03/27/20 Pre-Operative Diagnosis: acute cholecystitis/cholelithiasis/Mirizzis syndrome Operation: laparoscopic cholecystectomy Findings: acute cholecystitis/cholelithiasis/Mirizzis syndrome Post-Operative Diagnosis: Same as Pre-op Surgeon: Johann Verma Check Writer: Nandini Tripp Anesthesiologist/CIRCULATOR: Pina Arreola Anesthesia: General Specimens Removed: gallbladder and contents Estimated Blood Loss (mls): 20 Drains & Tubes with Location: 10 mm GALLITO in the gallbladder fossa
[2020-03-29] MEDS: oxyCODONE HCL 5 MG TABLET PO PRN ×2 (00:07→11:00)
[2020-03-29] MEDS: LEVOTHYROXINE NA 50 MCG TABLET (FP) PO SCH (06:30)
[2020-03-29 10:21] LABS: CALCIUM 8.4 mg/dL (8.5-10.1); POTASSIUM 3.9 mmol/L (3.5-5.1)
[2020-03-29 10:27] LABS: ALBUMIN 3.1 g/dl (3.4-5.0); BILIRUBIN,TOTAL 0.9 mg/dL (0.2-1); BLOOD UREA NITROGEN 6.4 mg/dL (7-18); CREATININE 0.9 mg/dL (0.55-1.3)
[2020-03-29] MEDS ORDERED: cefTRIAXone SODIUM 1 GM VIAL ONE (10:31)
[2020-03-29] MEDS ORDERED: DEXTROSE 5%-WATER - 50 ML IVPB ONE (10:31)
[2020-03-29] MEDS: CEFTRIAXONE 1 GM in DEXTROSE 5%-WATER - 50 ML IVPB SCH (10:59)
[2020-03-29] MEDS: PANTOPRAZOLE SODIUM 40 MG VIAL IVPUSH SCH (10:59)
[2020-03-29 11:03] LABS: TOT PROT 6.9 g/dl (6.4-8.2)
--- NOTE | 2020-03-29 11:54 | PN ---
Progress Note (short form) - Note Progress Note: Attending Surgeon POD#2 Feels better; tolerating diet VSS AF abdo- soft; port sites c/d/i and w/less ttp; GALLITO serous. LFT's trending down; bili nl WBC-nl IMP: doing well PLAN:Advance diet; continue drain; anticipate d/c 03/30/2020
--- NOTE | 2020-03-29 12:20 | OP ---
DATE OF OPERATION: 03/27/2020 PREOPERATIVE DIAGNOSIS: Acute cholecystitis, cholelithiasis and Mirizzi's syndrome. PROCEDURE: Laparoscopic cholecystectomy. SURGEON: Johann Vrema MD PRODUCT MANAGEMENT ANALYST: Nandini Tripp PA-C ANESTHESIA: General. OPERATIVE FINDINGS: Acute cholecystitis and cholelithiasis and findings consistent with a Mirizzi syndrome. The stone impacted in the neck of the gallbladder was compressing the distal common bile duct and the rest of the findings were unremarkable. PROCEDURE: The patient was placed on the operating table in the supine position and after the induction of general anesthesia the patient's abdomen was prepped with ChloraPrep and draped in sterile fashion. A timeout was taken and pneumoperitoneum established above the umbilicus using a Veress needle. Once 15 mmHg pressure were obtained, a 5-mm port was placed at the umbilicus and additional lateral 5-mm ports and a subxiphoid 12-mm port. Laparoscopy was carried out and the previously noted findings were observed. Dissection was begun at the neck of the gallbladder where the peritoneum was opened medially and laterally using blunt dissection and electrocautery. The cystic duct was identified coursing from the neck of the gallbladder towards the common bile duct and it was dissected using blunt dissection proximally and distally for length. Similarly, the artery was identified and dissected proximally and distally for length. A critical view of safety was taken and then the duct and the artery were clipped twice proximally and twice distally with large hemoclips. The duct and artery were then serially divided using Endoshears. Hemostasis was checked for and noted to be good and then the gallbladder was removed from the liver bed in a retrograde fashion using electrocautery. Prior to removal from the edge of the liver, hemostasis in the liver bed was again checked for and noted to be good and then the gallbladder removed from the edge of the liver, placed in an Endo Catch, and brought out through the subxiphoid port. Pneumoperitoneum was reestablished. Copious irrigation was carried out with saline. Hemostasis was verified again. A 10-mm Laron-Hartley drain was placed in the right hepatorenal fossa and brought out through 1 of the 5-mm ports and secured to the skin with 2-0 silk suture. All port sites were removed under laparoscopic vision without evidence of bleeding from the port sites. The port sites were infiltrated with 0.5% Marcaine and the skin edges reapproximated with 4-0 Biosyn in a subcuticular continuous fashion. Steri-Strips and Band-Aid dressings were placed. The drain was connected to bulb suction and then the patient aroused from general anesthesia and transferred to the postanesthesia care unit in stable condition, awake and alert. ESTIMATED BLOOD LOSS: 20 mL. REPLACEMENT: Crystalloid. DRAINS: One 10-mm Laron-Hartley in the gallbladder fossa. SPECIMEN: Gallbladder and contents to Pathology. I, Johann Verma, was physically present in the operating room from the time the patient was placed on the operating table until she was transferred to the postanesthesia care unit in my accompaniment. MD YAYA Tena/[id number] MTDD
--- NOTE | 2020-03-29 16:43 | PN ---
Progress Note (short form) - Note Progress Note: S: POD2. Improved. Patient passed flatus today. Otherwise without much complaints today. Pt able to tolerate liquids, but satiates quickly Vital Signs Temperature 98.3 F 03/29/20 14:00 Pulse Rate 71 03/29/20 14:00 Respiratory Rate 18 03/29/20 14:00 Blood Pressure 132/85 03/29/20 14:00 O2 Sat by Pulse Oximetry (%) 100 03/29/20 14:00 PE: Gen: NAD, awake, alert, oriented x3 sitting up in bed HEENT: NC/AT, GILLES, MMM LUNG: CTA b/l without wheezes or rhonchi CARD: RRR no murmurs ABD: Soft, ND, tenderness near surgical site, GALLITO drain with ~30 cc sanguinous fluid, laparoscopic sites C/D/I, normoactive BS EXT: No edema, 2+ pulses b/l. CBC, BMP 03/28/20 08:05 03/29/20 07:50 Hepatic Panel Total Bilirubin 0.9 mg/dL (0.2-1) 03/29/20 07:50 AST 36 U/L (15-37) 03/29/20 07:50 ALT 148 U/L (13-61) H 03/29/20 07:50 Alkaline Phosphatase 157 U/L (45-117) H 03/29/20 07:50 Albumin 3.1 g/dl (3.4-5.0) L 03/29/20 07:50 Active Medications Metronidazole (Flagyl 500mg Premixed Ivpb -) 500 mg in 100 mls @ 100 mls/hr IVPB Q8H-IV BABITA Last Admin: 03/29/20 10:59 Dose: 100 mls/hr Documented by: Ceftriaxone Sodium 1 gm/ (Dextrose) 50 mls @ 100 mls/hr IVPB DAILY [facility]ABITA Last Admin: 03/29/20 10:59 Dose: 100 mls/hr Documented by: Levothyroxine Sodium (Synthroid -) 50 mcg PO ACBK BABITA Last Admin: 03/29/20 06:30 Dose: 50 mcg Documented by: Morphine Sulfate (Morphine Sulfate) 2 mg IVPUSH Q4H PRN PRN Reason: PAIN LEVEL 7 - 10 Ondansetron HCl (Zofran Injection) 4 mg IVPUSH Q6H PRN PRN Reason: NAUSEA AND/OR VOMITING Oxycodone HCl (Roxicodone -) 5 mg PO Q6H PRN PRN Reason: PAIN LEVEL 1-5 Last Admin: 03/29/20 00:07 Dose: 5 mg Documented by: Oxycodone HCl (Roxicodone -) 10 mg PO Q6H PRN PRN Reason: PAIN LEVEL 6-10 Last Admin: 03/28/20 06:30 Dose: 10 mg Documented by: Pantoprazole Sodium (Protonix Iv) 40 mg IVPUSH DAILY BABITA Last Admin: 03/29/20 10:59 Dose: 40 mg Documented by: Assessment and Plan: Acute calculus cholecystitis History of Hypothyroidism --POD 2 lap cholecystectomy --Discussed with surgery: potentially will discontinue GALLITO drain tomorrow and would be okay to go home pending continued improvement --Drain maintenance --Advanced to regular diet today for trial --Continue PRN pain control --Continue Rocephin and Flagyl --Patient to be out of bed to aid in recovery --Incentive spirometer as directed --Continue home Synthroid Dispo: continue monitoring; anticipate d/c in 24-48hrs Agusto Acosta DO - IM
--- NOTE | 2020-03-29 18:06 | SURG ---
Surgery Teller Note Teller: Nandini Tripp PA-C Date of Service: 03/27/20 Diagnosis: acute cholecystitis/cholelithiasis/Mirizzis syndrome Procedure: laparoscopic cholecystectomy I was present for the entirety of the operative procedure. For further detail, please refer to operative report. Visit type - Case Type Case Type: ED Admission - Emergency Emergency Visit: Yes ED Registration Date: 03/27/20 Care time: The patient presented to the Emergency Department on the above date and was hospitalized for further evaluation of their emergent condition. - New patient This patient is new to me today: Yes Date on this admission: 03/27/20
[2020-03-30] MEDS: LEVOTHYROXINE NA 50 MCG TABLET (FP) PO SCH (06:37)
[2020-03-30 09:00] LABS: ALBUMIN 2.9 g/dl (3.4-5.0); BILIRUBIN,TOTAL 0.9 mg/dL (0.2-1); BLOOD UREA NITROGEN 10.6 mg/dL (7-18); CALCIUM 8.4 mg/dL (8.5-10.1); CREATININE 0.8 mg/dL (0.55-1.3); POTASSIUM 3.4 mmol/L (3.5-5.1); TOT PROT 6.1 g/dl (6.4-8.2)
[2020-03-30] MEDS ORDERED: DEXTROSE 5%-WATER - 50 ML IVPB ONE (09:40)
[2020-03-30] MEDS ORDERED: cefTRIAXone SODIUM 1 GM VIAL ONE (09:40)
[2020-03-30] MEDS: PANTOPRAZOLE SODIUM 40 MG VIAL IVPUSH SCH (10:11)
[2020-03-30] MEDS: CEFTRIAXONE 1 GM in DEXTROSE 5%-WATER - 50 ML IVPB SCH (10:11)
[2020-03-30] MEDS ORDERED: POTASSIUM CHLORIDE TABS 20 MEQ TABLET.ER (FP) PO ONE (10:30)
[2020-03-30] MEDS: POLYETHYLENE GLYCOL 3350 119 GM BTL PO SCH (12:32)
--- NOTE | 2020-03-30 14:13 | PN ---
Teaching Attending Note Name of Resident: Fili Gee ATTENDING PHYSICIAN STATEMENT I saw and evaluated the patient. I reviewed the resident's note and discussed the case with the resident. I agree with the resident's findings and plan as documented. SUBJECTIVE: Seen and examined at bedside. Patient with moderate abdominal tenderness. Isela erating p.o., ambulating, and passing flatus. Has not had a bowel movement. GALLITO drain still in place. If GALLITO drain removed today will likely be discharged tomorrow OBJECTIVE Last Vital Signs Temp Pulse Resp BP Pulse Ox 98.8 F 61 16 143/78 96 03/30/20 06:00 03/30/20 06:00 03/30/20 06:00 03/30/20 06:00 03/30/20 06:00 PE: Per resident note Labs/Imaging: reviewed ASSESSMENT/PLAN 65-year-old female with a history of hypothyroidism, NAFLD, gastritis who presents with acute cholecystitis #Severe sepsis 2/2 Acute calculus cholecystitis s/p lap maury -LFTs downtrending -surgery on board: appreciate recs -GALLITO drain in place -abx discontinued -pain control #Hypothyroidism Continue home levothyroxine #Gastritis Pantoprazole
--- NOTE | 2020-03-30 16:59 | PN ---
Progress Note (short form) - Note Progress Note: Surgery POD #3 Laparoscopic cholecystectomy. Patient seen and examined at bedside with no complaints. She states that she is having a little pain but overall she's feeling well. She is tolerating her diet, ambulating, passing flatus and voiding without limitation. She denies any CP, SOB, N/V/D fever or chills. Vital Signs Temp 98.3 F 03/30/20 15:20 Pulse 71 03/30/20 15:20 Resp 18 03/30/20 15:20 BP 133/80 03/30/20 15:20 Pulse Ox 96 03/30/20 15:20 Intake & Output 03/29/20 03/30/20 03/30/20 23:59 11:59 23:59 Intake Total 750 400 680 Output Total 40 50 50 Balance 710 350 630 Weight 152 lb Intake: IVPB 150 50 Oral 600 350 680 Output: Drainage 40 50 50 Right Flank 40 50 50 Other: Voiding Method Toilet Toilet Toilet # Unmeasured Voids Void 2 2 2 Bowel Movement No No Height 5 ft 4 in Body Mass Index (BMI) 26.1 CBC, BMP 03/28/20 08:05 03/30/20 07:18 PE: A&Ox3, NAD Unlabored resp on RA ABD: Obese, soft, ND with TTP at port sites appropriate to status, no tracking erythema, edema or active d/c. Drain at RLQ secure in good position with 100cc d/c today. B/L LE compartments soft, supple and non-tender with +2 DP pulses. Problem List - Problems (1) S/P laparoscopic cholecystectomy Assessment/Plan: POD #3 lap maury doing well and tolerating her regular diet. No BM but passing flatus. -measure and record drain output -regular diet -encourage OOB and IS -plan for d/c home tomorrow after drain d/c'd Evaluation and plan discussed with Dr Verma Code(s): Z90.49 - ACQUIRED ABSENCE OF OTHER SPECIFIED PARTS OF DIGESTIVE TRACT
[2020-03-30] MEDS: oxyCODONE HCL 5 MG TABLET PO PRN (18:40)
--- NOTE | 2020-03-30 20:06 | PN ---
Physical Exam: SUBJECTIVE: Patient seen and examined. Pt. states she is passing gas but has not passed stool. Pt. has some abdominal discomfort. Pt. rates pain as 4/10 in severity. No acute events overnight. OBJECTIVE: Vital Signs Period Temp Pulse Resp BP Sys/Tee Pulse Ox Last 24 Hr 97.5 F-98.8 F 61-72 16-18 132-160/68-80 94-97 GENERAL: The patient is awake, alert, in no acute distress. HEAD: Normal with no signs of trauma. EYES: Sclera anicteric, conjunctiva clear. ENT: Ears normal, nares patent, oropharynx clear without exudates, moist mucous membranes. NECK: Trachea midline, full range of motion, supple. LUNGS: Breath sounds equal, clear to auscultation bilaterally, no wheezes, no crackles, no accessory muscle use. HEART: Regular rate and rhythm, S1, S2 without murmur ABDOMEN: Soft, diffuse tenderness to palpation in suprapubic region?, non-tender around incisional sites?, nondistended, hypoactive bowel sounds= EXTREMITIES: 2+ pulses, warm, well-perfused, no edema. NEUROLOGICAL: No focal deficits, Normal speech, gait not observed. PSYCH: Normal mood, normal affect. SKIN: Warm, dry, normal turgor Laboratory Results - last 24 hr 03/30/20 07:18 Sodium 139 Potassium 3.4 L Chloride 104 Carbon Dioxide 29 Anion Gap 6 L BUN 10.6 Creatinine 0.8 Est GFR (CKD-EPI)AfAm 89.04 Est GFR (CKD-EPI)NonAf 76.83 Random Glucose 108 H Calcium 8.4 L Total Bilirubin 0.9 AST 19 ALT 100 H Alkaline Phosphatase 129 H Total Protein 6.1 L Albumin 2.9 L Active Medications Generic Name Dose Route Start Last Admin Trade Name Freq PRN Reason Stop Dose Admin Levothyroxine Sodium 50 mcg 03/28/20 07:00 03/30/20 06:37 Synthroid - PO 50 mcg ACBK BABITA Administration Morphine Sulfate 2 mg 03/27/20 17:31 Morphine Sulfate IVPUSH Q4H PRN PAIN LEVEL 7 - 10 Ondansetron HCl 4 mg 03/28/20 05:00 Zofran Injection IVPUSH Q6H PRN NAUSEA AND/OR VOMITING Oxycodone HCl 5 mg 03/27/20 17:26 03/30/20 18:40 Roxicodone - PO 5 mg Q6H PRN Administration PAIN LEVEL 1-5 Oxycodone HCl 10 mg 03/27/20 17:26 03/28/20 06:30 Roxicodone - PO 10 mg Q6H PRN Administration PAIN LEVEL 6-10 Pantoprazole Sodium 40 mg 03/28/20 10:00 03/30/20 10:11 Protonix Iv IVPUSH 40 mg DAILY BABITA Administration Polyethylene Glycol 17 gm 03/30/20 11:30 03/30/20 12:32 Miralax (For Daily Use) - PO 17 gm DAILY BABITA Administration ASSESSMENT/PLAN: Pt. is a 65 y.o. F w/ PMHx. of hypothyroidism, Fatty Liver, and gastritis who presenting with acute cholecystitis. #Severe sepsis 2/2 Acute calculus cholecystitis s/p lap maury POD#3 -LFTs downtrending -surgery on board: appreciate recs -GALLITO drain in place -abx discontinued -pain control #Hypothyroidism Continue home levothyroxine #Gastritis c/w Pantoprazole #FEN -no IVF encourage PO intake -monitor electrolytes and replete as needed -Clear, advance as tolerated #DVT Ppx. -Early ambulation #Dispo DC in AM, after drain pulled and Pt. tolerating PO Visit type - Emergency Visit Emergency Visit: Yes ED Registration Date: 03/27/20 Care time: The patient presented to the Emergency Department on the above date and was hospitalized for further evaluation of their emergent condition. - New Patient This patient is new to me today: Yes Date on this admission: 03/30/20 - Critical Care Critical Care patient: No - Discharge Referral Referred to [facility] Med P.C.: No - Medication Review Med list reviewed for High Risk Meds patients 65 and older: Yes ATTENDING PHYSICIAN STATEMENT I saw and evaluated the patient. I reviewed the resident's note and discussed the case with the resident. I agree with the resident's findings and plan as documented. SUBJECTIVE: OBJECTIVE: ASSESSMENT AND PLAN:
[2020-03-31] MEDS: LEVOTHYROXINE NA 50 MCG TABLET (FP) PO SCH (06:47)
[2020-03-31] MEDS: oxyCODONE HCL 5 MG TABLET PO PRN (08:09)
--- NOTE | 2020-03-31 08:13 | PN ---
Progress Note (short form) - Note Progress Note: Surgery POD #4 Laparoscopic cholecystectomy. Patient seen and examined at bedside with no complaints. She states that she is having a little pain but overall she's feeling well. She is tolerating her diet, ambulating, voiding and had a BM. She denies any CP, SOB, N/V/D fever or chills. Vital Signs Temp 98.2 F 03/31/20 06:00 Pulse 67 03/31/20 06:00 Resp 18 03/31/20 06:00 BP 145/80 03/31/20 06:00 Pulse Ox 99 03/31/20 06:00 Intake & Output 03/30/20 03/30/20 03/31/20 11:59 23:59 11:59 Intake Total 400 1830 500 Output Total 50 100 40 Balance 350 1730 460 Intake: IVPB 50 150 Oral 350 1680 500 Output: Drainage 50 100 40 Right Flank 50 100 40 Other: Voiding Method Toilet Toilet Toilet # Unmeasured Voids Void 2 3 2 Bowel Movement Yes No CBC, BMP 03/28/20 08:05 03/30/20 07:18 PE: A&Ox3, NAD Unlabored resp on RA ABD: Obese, soft, ND with diffuse TTP at port sites appropriate to status, no tracking erythema, edema or active d/c. Drain d/c'd on rounds this morning with tip fully intact, drain ostomy site clean and dry with no active d/c B/L LE compartments soft, supple and non-tender with +2 DP pulses. Problem List - Problems (1) S/P laparoscopic cholecystectomy Assessment/Plan: POD #4 lap maury doing well and tolerating her regular diet and moving her bowels. -regular diet -encourage OOB and IS -cleared from surgical standpoint for d/c home today Evaluation and plan discussed with Dr Verma Code(s): Z90.49 - ACQUIRED ABSENCE OF OTHER SPECIFIED PARTS OF DIGESTIVE TRACT
[2020-03-31] MEDS: POLYETHYLENE GLYCOL 3350 119 GM BTL PO SCH (09:42)
[2020-03-31] MEDS: PANTOPRAZOLE SODIUM 40 MG VIAL IVPUSH SCH (09:42)
[2020-03-31 09:43] LABS: ALBUMIN 3.1 g/dl (3.4-5.0); BILIRUBIN,TOTAL 0.4 mg/dL (0.2-1); BLOOD UREA NITROGEN 15.5 mg/dL (7-18); CALCIUM 8.4 mg/dL (8.5-10.1); CREATININE 0.8 mg/dL (0.55-1.3); MAGNESIUM 2.2 mg/dL (1.8-2.4); TOT PROT 6.4 g/dl (6.4-8.2)
--- NOTE | 2020-03-31 13:26 | PN ---
Teaching Attending Note Name of Resident: Maricruz Day ATTENDING PHYSICIAN STATEMENT I saw and evaluated the patient. I reviewed the resident's note and discussed the case with the resident. I agree with the resident's findings and plan as documented. SUBJECTIVE: Seen and examined at bedside. GALLITO drain removed. Abdominal tenderness decreased. Patient vomited this morning, but nausea resolved upon examination. Patient subsequently had a bowel movement and a KUB did not show any evidence of obstruction or ileus. Patient is medically cleared for discharge OBJECTIVE Last Vital Signs Temp Pulse Resp BP Pulse Ox 98.3 F 70 21 H 134/67 99 03/31/20 10:36 03/31/20 10:36 03/31/20 10:36 03/31/20 10:36 03/31/20 06:00 PE: Per resident note Labs/Imaging: reviewed ASSESSMENT/PLAN 65-year-old female with a history of hypothyroidism, NAFLD, gastritis who presented with severe sepsis acute cholecystitis. Patient was treated with antibiotics and fluids followed by a laparoscopic cholecystectomy with resolution of sepsis. GALLITO drain was placed and removed and patient is now hemodynamically stable and medically cleared for discharge. #Severe sepsis 2/2 Acute calculus cholecystitis s/p lap maury -LFTs downtrending -surgery on board: appreciate recs -GALLITO drain in place -abx discontinued -pain control #Hypothyroidism Continue home levothyroxine #Gastritis Pantoprazole
--- NOTE | 2020-03-31 13:36 | DS ---
Physical Exam: SUBJECTIVE: Patient seen and examined at bedside. No acute events. OBJECTIVE: Vital Signs Period Temp Pulse Resp BP Sys/Tee Pulse Ox Last 24 Hr 98.0 F-98.5 F 63-71 16-21 132-145/67-80 96-99 PHYSICAL EXAM GENERAL: The patient is awake, alert, in no acute distress. HEAD: Normal with no signs of trauma. EYES: Sclera anicteric, conjunctiva clear. ENT: Ears normal, nares patent, oropharynx clear without exudates, moist mucous membranes. NECK: Trachea midline, full range of motion, supple. LUNGS: Breath sounds equal, clear to auscultation bilaterally, no wheezes, no crackles, no accessory muscle use. HEART: Regular rate and rhythm, S1, S2 without murmur ABDOMEN: Soft, mildly tender to palpation. Hypoactive bowel sounds. No rebound tenderness/guarding. Well-healed surgical incisions. EXTREMITIES: 2+ pulses, warm, well-perfused, no edema. NEUROLOGICAL: No focal deficits, Normal speech, gait not observed. PSYCH: Normal mood, normal affect. SKIN: Warm, dry, normal turgor LABS Laboratory Results - last 24 hr 03/31/20 08:40 Sodium 139 Potassium 4.0 Chloride 106 Carbon Dioxide 25 Anion Gap 7 L BUN 15.5 Creatinine 0.8 Est GFR (CKD-EPI)AfAm 89.04 Est GFR (CKD-EPI)NonAf 76.83 Random Glucose 115 H Calcium 8.4 L Magnesium 2.2 Total Bilirubin 0.4 AST 41 H ALT 94 H Alkaline Phosphatase 118 H Total Protein 6.4 Albumin 3.1 L HOSPITAL COURSE: Date of Admission:03/27/20 65 y.o. F w/ PMHx. of hypothyroidism, Fatty Liver, and gastritis presented with acute acalculous cholecystitis. CTAP showed gallbladder overdistended with diffuse wall thickening, pericholecystic stranding. 2.7cm calculus at gallbladder neck. Right upper quadrant ultrasound revealed common bile duct at 0.7cm, without gross calculus noted. Pt was given IV fluids and IV Ceftriax one/Flagyl. She underwent lap maury with no complications. GALLITO drain was placed after procedure. She was monitored in the hospital and GALLITO drain was subsequently removed. Her symptoms improved and she was discharged home with Zofran for nausea PRN. Additionally, she was advised to follow up with her PCP and surgeon in 1 week. Date of Discharge: 03/31/20 Minutes to complete discharge: 36 Discharge Summary Problems reviewed: Yes Reason For Visit: ACUTE CHOLECYSTITIS DUE TO BILIARY CALCULUS Condition: Stable - Instructions Diet, Activity, Other Instructions: You came in for abdominal pain. We imaged your abdomen and saw that you had stones in your gallbladder with signs of infection. We also saw that you have a fatty liver and a probable cyst in your liver. You were seen by a surgeon and your gallbladder was removed. You were treated with IV antibiotics. Please continue taking your home medications as they were prescribed. Please follow up with you General Surgeon within 1 week. Please follow up with your PCP within 1 week. Please return to the ED if you are having fever, chills, worsening abdominal pain r any other concerning symptoms. Lleg por dolor abdominal. Tomamos imgenes de franklin abdomen y vimos que davey clculos en la vescula biliar con signos de infeccin. Tambin vimos que tiene un hgado graso y un posible quiste en el hgado. Lo delmy un cirujano y le extirparon la vescula biliar. Fue tratado con antibiticos por va intravenosa. Contine tomando julianne medicamentos caseros lio se los recetaron. Sammy un seguimiento con franklin cirujano general dentro de malka semana. Sammy un seguimiento con franklin PCP dentro de malka semana. Regrese al servicio de urgencias si tiene fiebre, escalofros, dolor abdominal que empeora o cualquier otro sntoma preocupante. Referrals: Johann Verma MD [Staff Physician] - Genaro Lindquist MD [Primary Care Provider] - Disposition: HOME - Home Medications Comprehensive Discharge Medication List: Ambulatory Orders Levothyroxine [Synthroid -] 50 mcg PO DAILY 03/26/20 This patient is new to me today: Yes Date on this admission: 03/31/20 Emergency Visit: Yes ED Registration Date: 03/27/20 Care time: The patient presented to the Emergency Department on the above date and was hospitalized for further evaluation of their emergent condition. Critical Care patient: No - Discharge Referral Referred to [facility] Med P.C.: No ATTENDING PHYSICIAN STATEMENT I saw and evaluated the patient. I reviewed the resident's note and discussed the case with the resident. I agree with the resident's findings and plan as documented. SUBJECTIVE: OBJECTIVE: ASSESSMENT AND PLAN:
[2020-03-31] MEDS ORDERED: ONDANSETRON 4 MG/2 ML VIAL IVPUSH ONE (15:20)
[2020-03-31 15:35] VITALS: BP 140/79; PULSE 60; TEMP 98.5
--- NOTE | 2020-04-01 13:32 | PATH ---
Surgical Pathology Report Patient Name: MARLYS ADDISON Med. Rec. #: [id number] /Age/Gender: 1955 (Age: 65) / F Account: [id number] Location: [address] [place] [address]/[facility] Taken: 03/27/2020 Received: 03/30/2020 Reported: 04/01/2020 Physicians: Johann Verma MD Specimen(s) Received GALLBLADDER Clinical History Acute cholecystitis due to biliary calculus Final Diagnosis GALLBLADDER, CHOLECYSTECTOMY: ACUTE AND CHRONIC CHOLECYSTITIS. CHOLELITHIASIS. Electronically Signed Parisa Carver M.D. Gross Description Received in formalin, labeled "gallbladder," is a 9.0 x 9.0 x 2.9 cm. gallbladder with a 0.2 cm. in length portion of cystic duct attached. The outer surface varies from smooth to shaggy. The lumen contains with bile and a stone measuring 2.5cm in greatest dimension. The mucosa is hemorrhagic and eroded. No mass is noted. The wall of the gallbladder measures up to 0.7cm. in thickness. Shape Carver sections are submitted in one cassette. KWDuran/03/31/2020 guillaume/03/31/2020
== END 2020-03-31 18:17 | disposition home or self-care (01) | DRG 854 ==
LOC: JER 16:19 → JERBED 03-27 01:32 → J5S 03-27 19:09
PROVIDERS: ADMIT Student in an Organized Health Care Education/Training Program; ATTEND Internal Medicine
PROC: 0FT44ZZ Resection of Gallbladder, Percutaneous Endoscopic Approach (ICD-10-PCS; principal; 2020-03-27 11:30)
DX: A41.89 Other specified sepsis (principal); K80.01 Calculus of gallbladder with acute cholecystitis with obstruction; R65.20 Severe sepsis without septic shock; K57.10 Diverticulosis of small intestine without perforation or abscess without bleeding; K76.0 Fatty (change of) liver, not elsewhere classified; K44.9 Diaphragmatic hernia without obstruction or gangrene; E03.9 Hypothyroidism, unspecified; K29.70 Gastritis, unspecified, without bleeding
CPT/HCPCS: 36415; 71046-TC-FY; 74018-TC-FY; 74177-TC; 76705-TC; 80053; 81003; 82150; 82550; 83605; 83690; 83735; 84100; 84443; 84484; 85025; 85027; 85610; 86850; 86900; 86901; 87040; 87086; 88304-TC; 93005; 93010; 94760; 97116-GP; 97161-GP; 99285-25; J0131; Q9967; U0003

== ENCOUNTER 2022-04-01 20:38 | Emergency (ER) | payer OTHER ==
[2022-04-01 20:49] VITALS: RESP 18; BMI 26.6
[2022-04-01] MEDS ORDERED: ACETAMINOPHEN 1000 MG/100 ML BAG IVPB ONE (22:04)
[2022-04-01] MEDS ORDERED: ACETAMINOPHEN INJECTION 100 ML IVPB ONE (22:10)
[2022-04-01 22:41] LABS: BASO % 1.1 % (0-2.0); EOS % 1.4 % (0-4.5); HEMATOCRIT 40.2 % (32.4-45.2); HEMOGLOBIN 13.9 GM/dL (10.7-15.3); LYMPH % 40.1 % (8-40); MCH 30.8 pg (25.7-33.7); MCHC 34.7 g/dl (32.0-36.0); MEAN CELL VOLUME 88.9 fl (80-96); MEAN PLT VOLUME 8.2 fl (7.5-11.1); MONO % 9.8 % (3.8-10.2); NEUT % 47.6 % (42.8-82.8); PLATELET COUNT 260 10^3/uL (134-434); RBC 4.52 M/mm3 (3.60-5.2); RDW 14.1 % (11.6-15.6); WHITE BLOOD COUNT 4.8 K/mm3 (4.0-10.0)
[2022-04-01 22:54] LABS: CHLORIDE 108 mmol/L (98-107); SODIUM 144 mmol/L (136-145)
[2022-04-01 22:57] LABS: ALBUMIN 3.6 g/dl (3.4-5.0); ANION GAP 6 MMOL/L (8-16); CALCIUM 8.5 mg/dL (8.5-10.1); CO2 30 mmol/L (21-32); GLUCOSE,RANDOM 124 mg/dL (74-106); LIPASE 204 U/L (73-393)
[2022-04-01 22:58] LABS: BLOOD UREA NITROGEN 13.1 mg/dL (7-18)
[2022-04-01 23:00] LABS: CREATININE 0.8 mg/dL (0.55-1.3); SGOT/AST 16 U/L (15-37); SGPT/ALT 32 U/L (13-61)
[2022-04-01 23:02] LABS: BILIRUBIN,TOTAL 0.4 mg/dL (0.2-1); TOT PROT 6.8 g/dl (6.4-8.2)
[2022-04-01 23:03] LABS: ALK PHOS 85 U/L (45-117)
[2022-04-02 01:21] LABS: URINE APPEARANCE CLEAR; URINE BILIRUBIN NEGATIVE (NEGATIVE); URINE COLOR YELLOW; URINE GLUCOSE (UA) NEGATIVE (NEGATIVE); URINE KETONE NEGATIVE (NEGATIVE); URINE LEUK ESTERASE NEGATIVE (NEGATIVE); URINE NITRITE NEGATIVE (NEGATIVE); URINE PROTEIN NEGATIVE (NEGATIVE); URINE UROBILINOGEN 0.2 mg/dL (0.2-1.0)
[2022-04-02 02:04] VITALS: BP 154/66; PULSE 53; TEMP 97.8
== END 2022-04-02 02:41 | disposition home or self-care (01) ==
LOC: JER 20:38
PROC: 3E0333Z Introduction of Anti-inflammatory into Peripheral Vein, Percutaneous Approach (ICD-10-PCS; principal; 2022-04-01)
DX: R07.9 Chest pain, unspecified (principal); M54.6 Pain in thoracic spine; R05.2 Subacute cough
CPT/HCPCS: 0241U-QW; 36415; 71045-TC-FY; 74177-TC; 80053; 81003; 83605; 83690; 84484; 85025; 87086; 93005; 93010; 99285-25; Q9967

== ENCOUNTER 2024-09-19 23:35 | Emergency (ER) | payer OTHER ==
[2024-09-19 23:42] VITALS: TEMP 98.1; BMI 24.0
[2024-09-20] MEDS ORDERED: ACETAMINOPHEN INJECTION 100 ML ONE (00:26)
[2024-09-20 00:36] VITALS: RESP 16
[2024-09-20] MEDS: ACETAMINOPHEN 1000 MG/100 ML BAG IVPB ONE (00:39)
[2024-09-20 00:42] LABS: BASO % 0.9 % (0-2.0); EOS % 1.2 % (0-4.5); HEMATOCRIT 42.8 % (32.4-45.2); HEMOGLOBIN 14.5 GM/dL (10.7-15.3); LYMPH % 34.1 % (8-40); MEAN CELL VOLUME 88.3 fl (80-96); MEAN PLT VOLUME 7.6 fl (7.5-11.1); MONO % 9.1 % (3.8-10.2); NEUT % 54.7 % (42.8-82.8); PLATELET COUNT 222 10^3/uL (134-434); RBC 4.85 M/mm3 (3.60-5.2); WHITE BLOOD COUNT 6.4 K/mm3 (4.0-10.0)
[2024-09-20 01:04] LABS: POTASSIUM 5.1 mmol/L (3.5-5.1)
[2024-09-20 01:07] LABS: BLOOD UREA NITROGEN 16.7 mg/dL (7-18); MAGNESIUM 2.4 mg/dL (1.8-2.4)
[2024-09-20 01:10] LABS: CREATININE 0.7 mg/dL (0.55-1.3)
[2024-09-20 01:11] LABS: BILIRUBIN,TOTAL 0.4 mg/dL (0.2-1)
[2024-09-20 01:12] LABS: TOT PROT 7.5 g/dl (6.4-8.2)
[2024-09-20 01:29] LABS: N-TERMINAL BNP 96.5 pg/ml (5-125)
[2024-09-20 03:53] VITALS: BP 148/76; PULSE 88
== END 2024-09-20 03:55 | disposition home or self-care (01) ==
LOC: JER 23:35
PROC: 3E033NZ Introduction of Analgesics, Hypnotics, Sedatives into Peripheral Vein, Percutaneous Approach (ICD-10-PCS; principal; 2024-09-20)
DX: R07.89 Other chest pain (principal); R06.02 Shortness of breath; I10 Essential (primary) hypertension
CPT/HCPCS: 0241U-QW; 36415; 71046-TC-FY; 80053; 83735; 83880; 84443; 84484; 85025; 93005; 93010; 96374; 99285-25; J0131